=== PATIENT | male | born 1965 | race Caucasian/White ===

== ENCOUNTER 2018-08-04 05:26 | Inpatient (IN) ==
[2018-08-04] MEDS ORDERED: Chlorhexidine Gluconate 2% 1 Pack (2 Cloths) TOPICAL ONE (06:05)
[2018-08-04] MEDS ORDERED: Metoprolol Tartrate 25 MG Tablet PO ONE (06:05)
[2018-08-04] MEDS ORDERED: Scopalamine 1.5 MG Patch T-DERMAL SCH (06:15)
[2018-08-04] MEDS ORDERED: Sodium Chlor 0.9% Inj 500 ML IV.SIG SCH (07:00)
[2018-08-04] MEDS ORDERED: Bupivacaine/Epinephrine Inj 0.25% 50 ML Vial ONE (09:15)
[2018-08-04] MEDS ORDERED: ceFAZolin 2 GM Premix Inj 2 GM/50 ML PIGGYBACK IV.SIG ONE (09:15)
[2018-08-04] MEDS ORDERED: fentaNYL Citrate Inj 100 MCG/2 ML Ampul ONE (10:18)
[2018-08-04] MEDS ORDERED: Dexmedetomidine Inj 200 MCG/2 ML Vial ONE (10:42)
[2018-08-04] MEDS ORDERED: Lidocaine PF 1% Inj 5 ML Syringe INFILTRATN ONE (10:45)
[2018-08-04] MEDS ORDERED: Glycopyrrolate Inj 1 MG/5 ML Syringe IV.PUSH ONE (10:45)
[2018-08-04] MEDS ORDERED: Succinylcholine Inj 100 MG/5 ML Syringe IV.PUSH ONE (10:45)
[2018-08-04] MEDS ORDERED: Phenylephrine/NS 1000 MCG/10ML Syringe IV.PUSH ONE (10:45)
[2018-08-04] MEDS ORDERED: Neostigmine Inj 5 MG/5 ML Syringe IV.PUSH ONE (10:45)
[2018-08-04] MEDS ORDERED: diphenhydrAMINE HCl 12.5 MG/5 ML Elixir UDC PO PRN (13:13)
[2018-08-04] MEDS ORDERED: Post-op Orders (for Pharmacy) OTHER STA (13:13)
[2018-08-04] MEDS ORDERED: KCL 20 mEq/D5W/NaCl 0.45% Inj 1,000 ML ONE (13:57)
[2018-08-04] MEDS ORDERED: *morphine SULFATE 4 MG/ML PERIprocedure ONLY ONE (14:04)
[2018-08-04] MEDS: KCL 20 mEq/D5W/NaCl 0.45% Inj 1,000 ML IV.CONT SCH (14:08)
[2018-08-04] MEDS: Enoxaparin Inj 40 MG/0.4 ML Syringe SQ SCH (18:44)
[2018-08-04] MEDS: Acetaminophen-HYDROcodone 325/7.5 Liq 15 ML UDC PO PRN (21:29)
[2018-08-05] MEDS: KCL 20 mEq/D5W/NaCl 0.45% Inj 1,000 ML IV.CONT SCH ×3 (01:57→15:27)
[2018-08-05] MEDS: Acetaminophen-HYDROcodone 325/7.5 Liq 15 ML UDC PO PRN ×4 (03:17→22:06)
[2018-08-05 06:52] LABS: Baso % (Auto) 0.1 % (0.0-2.0); Eos % (Auto) 0.1 % (0.0-4.0); Hematocrit 44.2 % (39.0-51.0); Hemoglobin 14.6 gm/dL (13.0-17.0); Lymph # (Auto) 3.5 th/mm3 (1.0-4.8); Lymph % (Auto) 24.1 % (9.0-44.0); Mean Corpuscular HGB Conc 33.1 % (32.0-36.0); Mean Corpuscular Hemoglobin 28.5 pg (27.0-34.0); Mean Corpuscular Volume 86.1 fL (80.0-100.0); Mean Platelet Volume 8.7 fL (7.0-11.0); Mono # (Auto) 1.3 th/mm3 (0.0-0.9); Mono % (Auto) 8.8 % (0.0-8.0); Neut # (Auto) 9.7 th/mm3 (1.8-7.7); Neut % (Auto) 66.9 % (16.0-70.0); Platelet Count 257 th/mm3 (150-450); Red Blood Count 5.13 mil/mm3 (4.50-5.90); Red Cell Distribution Width 14.5 % (11.6-17.2); White Blood Count 14.6 th/mm3 (4.0-11.0)
[2018-08-05 07:09] LABS: Anion Gap 10 meq/L (5-15); Blood Urea Nitrogen 11 mg/dL (7-18); Carbon Dioxide 25.3 meq/L (21.0-32.0); Chloride 104 meq/L (98-107); Glomerular Filtration Rate Greater Than 89 mL/min (>89); Glucose,Random 131 mg/dL (74-106); Potassium 3.7 meq/L (3.5-5.1); Sodium 139 meq/L (136-145)
--- NOTE | 2018-08-05 09:15 | MP ---
cc: Mani Bran MD DATE OF OPERATION: 08/04/2018 PREOPERATIVE DIAGNOSES: 1. Reflux uncontrolled by medical management. 2. Moderate sized hiatal hernia. PROCEDURE: 1. Laparoscopic Akanksha-en-Y gastrojejunostomy, 100 cm Akanksha limb, antegastric, antecolic. 2. Laparoscopic hiatal hernia repair. SURGEON: Mani Bran MD. EXERCISE PHYSIOLOGY PROFESSOR: Gilbert Mackay MD. Dr. Mackay's assistance was necessary for this procedure due to the complexity of the procedure. Dr. Mackay assisted with manipulation and exposure during the procedure. Dr. Mackay was present for the entire procedure. The orthotic assistant provided by [employer] was utilized with managing the camera. ANESTHESIA: General endotracheal anesthesia. ESTIMATED BLOOD LOSS: 50 mL. FINDINGS: Moderate size hiatal hernia. SPECIMENS: None. COMPLICATIONS: None. DETAILS OF OPERATION: The patient was brought to the operating room, placed on the operating table in supine position. Bilateral sequential inflation devices placed on the lower extremities. General anesthesia instituted. The abdomen was prepped and draped sterilely. A point 18 cm distal to the xiphoid in the midline anesthetized with 0.25% Marcaine with epinephrine. A skin incision was made. A 5 mm Optiview port placed under direct vision and pneumoperitoneum created. Under direct vision, a 5 mm left upper quadrant, 12 mm left upper quadrant, 12 mm right upper quadrant, and 5 mm right upper quadrant ports were placed. Prior to placement of all ports, the skin and peritoneum anesthetized with 0.25% Marcaine with epinephrine. The patient was placed in reverse Trendelenburg position, left side up. The Inés-Flex retractor was placed. Left lobe of the liver was retracted. The patient had a prior sleeve gastrectomy. The proximal stomach was within the chest. The omentum adhesed to the lateral aspect of the stomach was taken down superiorly. The left crura of the diaphragm was dissected out. The hepatogastric ligament was entered. The right crura of the diaphragm was dissected out. The Tabor drain was placed around the proximal stomach. The stomach was retracted into the abdominal cavity. The crura of the diaphragm was dissected anteriorly. The hernia sac was excised. The distal esophagus retracted into the peritoneal cavity. The crura of the diaphragm was then closed posteriorly with 2 figure-of-8 sutures of #0 silk. Attention was then focused in the lower abdomen. The omentum was lifted into the upper abdomen and split down the middle to create a path for the Akanksha limb. The ligament of Treitz was identified, a point 40 cm distal identified. The small bowel was divided in this region using the Hixton Flex stapler with vascular load, reinforced with Seamguard. The distal segment was brought up for a distance of 100 cm. Enterotomy created in this region, enterotomy in the biliopancreatic limb, and a [id number] stapled jejunojejunostomy created in this region. The mesenteric defect closed with 2-0 Surgidac suture in a running manner. A point about approximately 5 cm distal to the GE junction along the lesser curve identified. The posterior aspect of the stomach was entered in this region. The stomach was divided using an Hixton Flex stapler with gold load. A gastrotomy was then created in this portion of the stomach, the enterotomy, and the Akanksha limb. A gastrojejunostomy was then created a stomal opening of 2 cm using the Hixton Flex stapler blue load. An 18-Setswana OG tube was then placed across the anastomosis and this defect was then closed in 2 layers of 2-0 running Vicryl. Prior to placement of the second layer, Methylene blue instilled through the OG tube after occluding distal to the gastrojejunostomy. There was no evidence of extravasation. Evicel was then placed along the gastrojejunostomy and jejunojejunostomy. The operative field was inspected. Hemostasis was present. The Inés-Flex retractor was removed. CO2 released. All ports were removed. All skin incisions closed with 4-0 Monocryl. Abdominal wall was cleaned and sterile dressing placed. The patient was awakened and taken to the recovery room. MD RAPHAEL Steven/olman , 07:25 AM , 07:35 AM
[2018-08-05] MEDS ORDERED: HYDROmorphone PF Inj 2 MG/ML Vial IV.PUSH PRN (11:09)
[2018-08-05] MEDS: buPROPion 150 MG 12 HR Tablet PO SCH (11:16)
[2018-08-05] MEDS: Enoxaparin Inj 40 MG/0.4 ML Syringe SQ SCH (18:22)
[2018-08-05] MEDS: Sertraline 100 MG Tablet PO SCH (20:09)
[2018-08-05 20:35] VITALS: RESP 18
[2018-08-05] MEDS ORDERED: traZODone 100 MG Tablet PO SCH (21:00)
[2018-08-06] MEDS: KCL 20 mEq/D5W/NaCl 0.45% Inj 1,000 ML IV.CONT SCH ×2 (02:56→06:01)
[2018-08-06] MEDS: buPROPion 150 MG 12 HR Tablet PO SCH (08:03)
[2018-08-06] MEDS: Acetaminophen-HYDROcodone 325/7.5 Liq 15 ML UDC PO PRN ×2 (08:03→15:45)
[2018-08-06] MEDS: Sertraline 100 MG Tablet PO SCH (08:03)
[2018-08-06 09:48] VITALS: O2SAT 95
--- NOTE | 2018-08-06 10:01 | P.PNGS ---
Subjective Patient reports: no new complaints, feels better, flatus, no bowel movement Physical Exam Vital signs: Vital Signs 08/05/18 12:00 08/05/18 16:00 08/05/18 20:00 Temperature 97.9 F 98.0 F 98.2 F Pulse Rate 64 41 L 63 Respiratory Rate 18 20 18 Blood Pressure 136/82 137/82 137/63 Pulse Oximetry 94 L 96 99 08/06/18 00:00 08/06/18 08:00 08/06/18 09:47 Temperature 98 F 97.7 F Pulse Rate 77 75 Respiratory Rate 18 18 Blood Pressure 129/75 142/90 H Pulse Oximetry 95 94 L 95 Intake & Output 08/05/18 08/06/18 08/06/18 18:59 06:59 18:59 Intake Total 1200 / 1200 1480 / 1480 Balance 1200 / 1200 1480 / 1480 Weight 105.5 kg Intake: IV 1200 / 1200 1000 / 1000 D5W/1/2NS + KCL 20 mEq Inj 1, 1000 / 1000 1000 / 1000 000 ML @ 75 mls/hr IV.CONT . [id number] SHAILESH Rx#:[id number] Ancef Inj 1,000 MG In NS Inj 100 / 100 100 ML @ 200 mls/hr IV.SIG Q8H SHAILESH Rx#:[id number] Flagyl 500 MG Inj 100 ML @ 200 100 / 100 mls/hr IV.SIG Q8H SHAILESH Rx#: [id number] Oral 480 / 480 Other: # Voids 3 Date of Last Bowel Movement 08/03/18 08/03/18 - Routine Respiratory Exam Present: CTA bilaterally - Routine Cardiovascular Exam Present: RRR - Routine Abdominal Exam Present: soft (incisional tenderness, incisions c/d/i) Assessment and Plan - Plan POD 2 Sleeve conversion to rygb PLAN liquid diet oob pain control dvt ppx d/c home today f/u with Dr. Milan
[2018-08-06 11:45] LABS: Baso % (Auto) 0.3 % (0.0-2.0); Eos # (Auto) 0.1 th/mm3 (0.0-0.4); Eos % (Auto) 0.7 % (0.0-4.0); Hematocrit 46.3 % (39.0-51.0); Hemoglobin 15.5 gm/dL (13.0-17.0); Lymph # (Auto) 4.1 th/mm3 (1.0-4.8); Lymph % (Auto) 33.3 % (9.0-44.0); Mean Corpuscular HGB Conc 33.6 % (32.0-36.0); Mean Corpuscular Hemoglobin 28.8 pg (27.0-34.0); Mean Corpuscular Volume 85.9 fL (80.0-100.0); Mean Platelet Volume 8.2 fL (7.0-11.0); Mono # (Auto) 0.9 th/mm3 (0.0-0.9); Mono % (Auto) 7.1 % (0.0-8.0); Neut # (Auto) 7.2 th/mm3 (1.8-7.7); Neut % (Auto) 58.6 % (16.0-70.0); Platelet Count 286 th/mm3 (150-450); Red Blood Count 5.39 mil/mm3 (4.50-5.90); Red Cell Distribution Width 14.5 % (11.6-17.2); White Blood Count 12.3 th/mm3 (4.0-11.0)
[2018-08-06 12:00] VITALS: BP 126/77; PULSE 88; TEMP 98.2
[2018-08-06 12:10] LABS: Anion Gap 6 meq/L (5-15); Blood Urea Nitrogen 7 mg/dL (7-18); Calcium 9.4 mg/dL (8.5-10.1); Chloride 105 meq/L (98-107); Glomerular Filtration Rate Greater Than 89 mL/min (>89); Glucose,Random 116 mg/dL (74-106); Potassium 4.1 meq/L (3.5-5.1); Sodium 139 meq/L (136-145)
== END 2018-08-06 17:40 | disposition home or self-care (01) ==
LOC: HSDI 05:26 → N07 16:04 → UNDODISIN 21:52
PROVIDERS: ADMIT Surgery; ATTEND Surgery